=== PATIENT | female | born 1975 | race Caucasian/White ===

== ENCOUNTER → 2020-12-13 15:31 | Outpatient (BNVA) | payer OTHER, SELFPAY | PROVIDERS: PCP Internal Medicine; Visit Provider Surgery | DX: D17.9 Benign lipomatous neoplasm, unspecified (principal); K43.2 Incisional hernia without obstruction or gangrene | CPT/HCPCS: 99202 ==

== ENCOUNTER 2023-08-25 15:03 | Outpatient (AMB) | payer OTHER, SELFPAY ==
--- NOTE | 2023-08-25 15:06 | MHC.OFFVIS ---
Intake Vital Signs 08/25/23 15:10 Height 4 ft 9 in Weight 260 lb BMI 56.3 BP 131/53 L Blood Pressure Location Lt brachial Position Sitting Pulse 91 Intake Visit Reasons: Colonoscopy screening Intake Note: Patient new consult for pre colonoscopy screening Patient denies any GI issues. 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 Accompanied by: Self / Same As Patient Allergies codeine [Codeine] Allergy (Mild, Verified 08/25/23 15:09) VOMITING, nausea and vomiting Medication List - Last Reconciled 08/25/23 by Luisa Crowder PA-C acetaminophen ER 650 mg PO Q8H atorvastatin 40 mg PO QPM betamethasone dipropionate 0.05% 1 appl topical DAILY PRN bisacodyl (Dulcolax (bisacodyl)) 10 mg CO DAILY PRN bupropion HCl 300 mg PO BEDTIME lisinopril-hydrochlorothiazide 10-12.5 mg 1 tab PO DAILY loratadine 10 mg PO DAILY methadone 150 mg PO DAILY norethindrone (contraceptive) 0.35 mg PO DAILY omeprazole 40 mg PO DAILY triamcinolone acetonide 0.5% appl topical HPI HPI Comments History of Present Illness Details A 48 y/o female referred for index screening colonoscopy- She takes stool softeners- with good response-chronic constipation been taking methadone she has hx UGIB for ulcers- She takes omeprazole 40mg-seems to give fairly good coverage does have occasional breakthrough She has no nausea, vomiting hematemesis, hematochezia fever or chills No family history GI cancer [facility] Medical History (Updated 08/30/23 @ 14:47 by Luisa Crowder PA-C) Cataract Microscopic hematuria Morbid obesity Herniated disc Scoliosis Arthritis Nephrolithiasis Peptic ulcer Surgical History History of excision of mass History of ureter stent History of tonsillectomy History of delivery History of adjustable gastric banding (2006) Social History Household Members Other:: and kids Alcohol intake: never Patient Tobacco Use Status: Former Tobacco user Current occupational status: disabled Review of Systems Const All systems reviewed & are unremarkable except as noted in HPI and below Card Denies chest pain GI Denies hematochezia, Reports constipation, Denies nausea, Denies vomiting and Denies hematemesis Musc Reports back pain and Reports arthralgias Psych Reports anxiety, Reports depression, Denies homicidal ideation and Denies suicidal ideation Physical Exam Vital Signs: Last Vital Signs Pulse 91 08/25/23 15:10 BP 131/53 L 08/25/23 15:10 BMI result Body Mass Index 56.3 Const General: cooperative and comfortable Orientation/consciousness: patient oriented x3 Limitations: ambulation with cane HEENT Teeth and gingiva: other (no teeth) Resp Effort & Inspection: normal respiratory effort and able to speak in complete sentences Auscultation: clear to auscultation bilaterally, no rales, no rhonchi and no wheezes Neuro General: patient oriented x3 Assessment & Plan Assessment & Plan (1) Encounter for screening colonoscopy: Code(s): Z12.11 - Encounter for screening for malignant neoplasm of colon (2) History of bleeding ulcers: Code(s): Z87.11 - Personal history of peptic ulcer disease Plan: PPI (3) Acid reflux: Code(s): K21.9 - Gastro-esophageal reflux disease without esophagitis Plan: Reflux precaution Continue PPI (4) Chronic constipation: Comment: MLC methadone Code(s): K59.09 - Other constipation Plan: Maintain high-fiber diet Bowel regimen Plan EGD/ colon MG prep Miralax QD x 1 wk < prep day Orders: Orders EGD/Havre Combo - GI Use Only 08/25/23 K21.9 - Gastro-esophageal reflux disease without esophagitis, Z12.11 - Encounter for screening for malignant neoplasm of colon, Z87.11 - Personal history of peptic ulcer disease Medications: New bisacodyl (Dulcolax (bisacodyl)) Day before procedure @ 12 noon Take 4 tablets by mouth followed by large glass of water 20 mg (4 x 5 mg) PO ONCE 1 day PRN 4 tabs 0RF colonoscopy prep Z12.11 - Encounter for screening for malignant neoplasm of colon polyethylene glycol 3350 (Miralax) Take as directed by mouth the day before your procedure. 238 grams PO ONCE 1 day PRN 238 grams 0RF laxative effect Patient Instructions: 48-year-old female patient history GI bleed referred for screening colonoscopy Schedule EGD and colonoscopy MiraLax Gatorade MiraLax daily 1 week prior to procedure Maintain high-fiber Consistent bowel regimen Needs escorted due to anesthesia Rare risks discussed Coding Level of Care Code New Pt Level 3 (75333) Diagnoses Encounter for screening colonoscopy Z12.11 History of bleeding ulcers Z87.11 Acid reflux K21.9 Chronic constipation K59.09 Time Spent (min) 30
[2023-08-25 15:10] VITALS: BP 131/53; PULSE 91; BMI 56.3
== END 2023-08-25 15:28 | disposition home or self-care (01) ==
PROVIDERS: PCP Internal Medicine; Visit Provider Physician Assistant
DX: K21.9 Gastro-esophageal reflux disease without esophagitis (principal); K59.09 Other constipation; Z12.11 Encounter for screening for malignant neoplasm of colon; Z87.11 Personal history of peptic ulcer disease
CPT/HCPCS: 99203

== ENCOUNTER → 2023-08-25 15:03 | Outpatient (BNVA) | payer OTHER, SELFPAY | PROVIDERS: PCP Internal Medicine; Visit Provider Physician Assistant | DX: Z12.11 Encounter for screening for malignant neoplasm of colon (principal); K21.9 Gastro-esophageal reflux disease without esophagitis; K59.09 Other constipation; Z87.11 Personal history of peptic ulcer disease; Z79.899 Other long term (current) drug therapy | CPT/HCPCS: 99202 ==

== ENCOUNTER 2023-12-15 11:35 | Day surgery (SDC) | payer OTHER, SELFPAY ==
--- NOTE | 2023-12-14 13:01 | HO.ANESPROP2 ---
HPI - Anesthesia Eval Consult details Narrative: 48yo F for Upper Endoscopy and Colonoscopy BMI 56.3% Methadone 150mg daily PMFSH Active Problems Active Problems: All Active Problems Chronic constipation (Acute) History of bleeding ulcers (Acute) Acid reflux (Acute) Encounter for screening colonoscopy (Acute) Cataract (Acute) Lipoma (Acute) Incisional hernia (Acute) Past Medical History Medical History Cataract Microscopic hematuria Morbid obesity Herniated disc Scoliosis Arthritis Nephrolithiasis Peptic ulcer Surgical History Surgical History History of excision of mass History of ureter stent History of tonsillectomy History of delivery History of adjustable gastric banding (2006) Social History Social History Household Members Other:: and kids Alcohol intake: never Patient Tobacco Use Status: Former Tobacco user Current occupational status: disabled Meds Allergies Allergy/AdvReac Type Severity Reaction Status Date / Time codeine [Codeine] Allergy Mild VOMITING, Verified 12/15/23 13:29 nausea and vomiting Home Medications ?Medication ?Instructions ?Recorded ?Confirmed ?Last Taken ?Type acetaminophen 650 mg 650 mg PO Q8H 12/13/20 12/15/23 Unknown History tablet,extended release atorvastatin 40 mg tablet 40 mg PO QPM 12/13/20 12/15/23 Unknown History betamethasone dipropionate 0.05 % 1 appl topical DAILY PRN Rash 12/13/20 12/15/23 Unknown History topical cream bupropion HCl 300 mg 24 hr tablet, 300 mg PO BEDTIME 12/13/20 12/15/23 Unknown History extended release lisinopril 10 1 tab PO DAILY 12/13/20 12/15/23 Unknown History mg-hydrochlorothiazide 12.5 mg tablet loratadine 10 mg tablet 10 mg PO DAILY 12/13/20 12/15/23 Unknown History methadone 10 mg/mL oral concentrate 160 mg PO DAILY 12/13/20 12/15/23 12/15/23 History norethindrone (contraceptive) 0.35 0.35 mg PO DAILY 12/13/20 12/15/23 Unknown History mg tablet omeprazole 40 mg capsule,delayed 40 mg PO DAILY 12/13/20 12/15/23 Unknown History release triamcinolone acetonide 0.5 % appl topical 12/13/20 12/16/20 Unknown History topical cream Assessment and Plan Assessment Anesthesia Assessment: Chart Reviewed
[2023-12-15 13:33] LABS: UPreg QC Valid YES; Urine Pregnancy NEGATIVE (NEGATIVE)
[2023-12-15 13:35] VITALS: BP 98/52; PULSE 79; RESP 20; TEMP 36.1; O2SAT 96; BMI 47.2
[2023-12-15] MEDS: Lactated Ringers 1,000 ML 100 ML IVCONT (14:00)
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
--- NOTE | 2023-12-15 14:51 | P.HPSUR_ITS ---
Pre-Procedural Eval Section A - 24 Hr Update-Section A only Date of Service: 12/15/23 Section B - Complete if H&P > 30 days Chief Complaint: Encounter for screening for malignant neoplasm of Relevant Family History (Specify if Yes): No Relevant Social History: None Present Medications: see Short Stay Collaborative assessment Medical History: Significant History (Cataract Microscopic hematuria Morbid ob esity Herniated disc Scoliosis Arthritis Nephrolithiasis Peptic ulcer) History of Previous Operations: Relevant previous surgery/procedure and date(s) ( History of excision of mass History of ureter stent History of tonsillectomy History of delivery History of adjustable gastric banding (2006)) Allergies: Allergies Allergy/AdvReac Type Severity Reaction Status Date / Time codeine [Codeine] Allergy Mild VOMITING, Verified 12/15/23 13:29 nausea and vomiting Review of Systems Sugical H&P ROS: Negative: Constitution, Cardiovascular, Respiratory, Neurological, Psychiatric, Hem-Onc, Allergic/Immunologic, Gastrointestinal, Genitourinary, Musculoskeletal, Integumentary, Endocrine and Eyes/Ears/Nose/Throat Exam Surgical H&P Exam: Normal: HEENT, Normal: Heart, Normal: Lungs, Normal: E xtremities, Normal: Abdomen, Normal: Skin and Normal: Neurological Plan Diagnosis/Plan: Unchanged I have reviewed the history and physical and performed a pertinent physical examination on my patient. No changes have occurred unless specified. EGD for GERD Time Spent With Patient Time: Total time managing care of this patient today ____ minutes.
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
--- NOTE | 2023-12-15 15:34 | HO.OPN-COLON ---
Colonoscopy Operative Note Operative Note Date of Service: 12/15/23 Narrative: Operative Information Procedure Description: EGD, Colonoscopy Indication: colo screening, GERD Anesthesia: MAC FLEXIBLE TRANSORAL UPPER GASTROINTESTINAL ENDOSCOPY AND COLONOSCOPY PROCEDURE NOTE UPPER ENDOSCOPY Consent: Indications for the procedure and potential complications of bleeding, perforation, reaction to medications and missed diagnosis were discussed with the patient and informed consent was obtained. Instrument: Olympus GIF H 190 J mid size upper endoscope Monitoring: Vital signs and clinical assessment, continuous EKG monitoring, Pulse oximetry, Carbon Dioxide monitoring and blood pressure monitoring were done throughout the procedure. Procedure: The patient was placed in the left lateral decubitis position and pre-procedure medications were administered and a bite block was placed. The endoscope was inserted into the mouth and advanced under direct vision to the jejunum. A careful inspection was made as the upper endoscope was withdrawn including a retroflexed examination of the proximal stomach; Findings and interventions are described below. Findings: Larynx:normal Esophagus: GE junction at 35 cm, diaphragm hiatus at 35 cm, normal mucosa Stomach pouch: Normal mucosa. 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 Procedure: The patient was placed in the left lateral decubitis position and pre-procedure medications were administered. After a digital rectal examination of the ano-rectum, the video colonoscope was inserted into the rectum and advanced through the colon to the ascending colon The colon was full of sludge and fecal matter, visability was poor with exception of some parts of sigmoid The procedure was aborted Impression and Post Procedure Diagnosis: Endoscopy Findings: gastro gastric fistula Colonoscopy Findings: poor prep Plan: Repeat EGD with OTSC and grasper--have to order or mantis device, will also need APC Repeat Colonoscopy within 6 months with attention to prep or earlier if clinically indicated Above findings were reviewed with the patient and relevant handouts were provided if indicated.
[2023-12-15 15:37] VITALS: BP 92/42; PULSE 84; RESP 16; TEMP 36.4; O2SAT 93
--- NOTE | 2023-12-15 15:40 | HO.POSTANES ---
Post Anesthesia Evaluation Post Anesthesia Evaluation Date of Service: 12/15/23 Vital Signs: Vital Signs Temp Pulse Resp BP Pulse Ox O2 Del Method 12/15/23 15:37 97.6 F 84 16 92/42 L 93 Room Air 12/15/23 13:35 96.9 F 79 20 98/52 L 96 Room Air Anesthesia: Monitored Mental Status: Awake Pain Control: Satisfactory Nausea/Vomiting: None Hydration: Adequate Anesthesia-Related Issues: No Anes. Related Issues
[2023-12-15 15:52] VITALS: BP 112/59; PULSE 84; RESP 18; TEMP 36.6; O2SAT 98
== END 2023-12-15 16:15 | disposition home or self-care (01) ==
PROVIDERS: Nurse Practitioner; PCP Internal Medicine; Visit Provider Internal Medicine Gastroenterology
PROC: (CPT 43239; principal; 2023-12-15 15:00)
DX: Z12.11 Encounter for screening for malignant neoplasm of colon (principal); K59.09 Other constipation; K21.9 Gastro-esophageal reflux disease without esophagitis; K44.9 Diaphragmatic hernia without obstruction or gangrene; K31.6 Fistula of stomach and duodenum; Z87.11 Personal history of peptic ulcer disease; Z79.899 Other long term (current) drug therapy; F11.90 Opioid use, unspecified, uncomplicated; Z88.5 Allergy status to narcotic agent; Z98.890 Other specified postprocedural states
CPT/HCPCS: 43239; G0121; 81025; J2704

== ENCOUNTER → 2023-12-15 11:35 | Outpatient (BNV) | payer OTHER, SELFPAY | PROVIDERS: PCP Internal Medicine; Visit Provider Internal Medicine Gastroenterology | DX: Z12.11 Encounter for screening for malignant neoplasm of colon (principal); Z91.199 Patient's noncompliance with other medical treatment and regimen due to unspecified reason; K21.9 Gastro-esophageal reflux disease without esophagitis; K31.6 Fistula of stomach and duodenum | CPT/HCPCS: 43235; G0121 ==

== ENCOUNTER → 2024-02-01 20:30 | Outpatient (BNV) | payer OTHER, SELFPAY | PROVIDERS: PCP Internal Medicine; Visit Provider Internal Medicine | DX: R06.83 Snoring (principal) | CPT/HCPCS: 95810 ==

== ENCOUNTER → 2024-02-01 20:30 | Outpatient (REF) | payer OTHER, SELFPAY | LOC: HO.SL 20:30 | PROVIDERS: PCP Internal Medicine; Visit Provider Internal Medicine | DX: R06.83 Snoring (principal); F51.9 Sleep disorder not due to a substance or known physiological condition, unspecified; G47.11 Idiopathic hypersomnia with long sleep time; I10 Essential (primary) hypertension; E66.01 Morbid (severe) obesity due to excess calories; E78.00 Pure hypercholesterolemia, unspecified; Z79.899 Other long term (current) drug therapy | CPT/HCPCS: 95810 ==

== ENCOUNTER 2025-04-18 12:59 | Outpatient (REF) | payer OTHER, SELFPAY | END 2025-04-18 13:00 | disposition home or self-care (01) | LOC: HO.LNP 12:59 | PROVIDERS: PCP Internal Medicine; Visit Provider Advanced Practice Midwife | DX: Z01.419 Encounter for gynecological examination (general) (routine) without abnormal findings (principal); D22.9 Melanocytic nevi, unspecified; L40.3 Pustulosis palmaris et plantaris; E66.01 Morbid (severe) obesity due to excess calories; Z12.39 Encounter for other screening for malignant neoplasm of breast; Z30.41 Encounter for surveillance of contraceptive pills; Z68.43 Body mass index [BMI] 50.0-59.9, adult | CPT/HCPCS: 87626; 88175 ==

== ENCOUNTER 2025-04-18 12:59 | Outpatient (AMB) | payer OTHER, SELFPAY ==
--- NOTE | 2025-04-18 13:20 | MHC.OFFVIS ---
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 ?should be off OCP. Vp Cardiovascular Required: No Information Interpreted: non-clinical & clinical Battery Recharger: Battery Recharger Present (david) Accompanied by: Self / Same As Patient Allergies codeine (Codeine) Allergy (Mild, Verified 04/18/25 13:24) VOMITING, nausea and vomiting Medication List - Last Reconciled 04/18/25 by Rochelle Marshall LPN acetaminophen ER 650 mg PO Q8H atorvastatin 40 mg PO QPM betamethasone dipropionate 0.05% 1 appl topical DAILY PRN bupropion HCl XL 300 mg PO BEDTIME doxycycline hyclate 100 mg PO BID furosemide (Lasix) 20 mg PO DAILY lisinopril 20 mg PO DAILY loratadine 10 mg PO DAILY methadone 160 mg PO DAILY norethindrone (contraceptive) 0.35 mg PO DAILY omeprazole 40 mg PO DAILY triamcinolone acetonide 0.5% appl topical Do you need a note to return to daycare/school/sports/work: No HPI Comments Details: Pt presents today for ANNUAL exam , she is new to the office and hear to establish care, referred by her PCP She has the following concerns: she is currently on progestin only pill and wants to know should she be off the pill, reports originally prescribed for dysmenorrhea She is not sexually active for several years She denies any issues of DV Exercise: limited due to disability Nutrition/calcium: Last Pap: unknown- no results available Last mammo: completed externally, will sign N[facility] for [facility] Medical History Cataract Microscopic hematuria Morbid obesity Herniated disc Scoliosis Arthritis Nephrolithiasis Peptic ulcer Surgical History History of excision of mass History of ureter stent History of tonsillectomy History of delivery History of adjustable gastric banding (2006) Family History Mother No problems noted. Father No problems noted. Social History Household Members Other:: and kids Alcohol intake: never Patient Tobacco Use Status: Former Tobacco user Current occupational status: disabled Female Reproductive History Menstrual Age of Menarche: 8 control method: pills Total pregnancies: 3 Number of Living Children: 3 Review of Systems Const Reports no additional complaints ENT Reports no additional complaints Card Reports no additional complaints Resp Reports no additional complaints GI Reports no additional complaints Reports as per HPI Musc Details: walks with cane Skin/Breast Reports system reviewed and no additional complaints, except as documented Aller/Immun Details: hx auto-immune disorder Physical Exam Vital Signs: Last Vital Signs BP 118/72 04/18/25 13:21 BMI result Body Mass Index 54.8 Const General: cooperative and no acute distress Nutritional Appearance: obese morbidly obese Orientation/consciousness: patient oriented x3 Limitations: ambulation with cane HEENT Head: Yes normal to inspection and Yes normocephalic Ears: external ears normal General nose exam: Normal external nose present Neck Neck: Yes normal visual inspection Chest Breast/axilla inspection: normal inspection of the breasts, normal inspection of the axillae and Other (No skin changes, peau d orange, or nipple discharge noted) Breast/axilla palpation: normal palpation of the breasts, normal palpation of the axillae and no axillary lymphadenopathy Resp Effort & Inspection: normal respiratory effort and able to speak in complete sentences GI Inspection: Yes Abdominal wall edema (of the lower abdomen), No distended, Yes Abdominal panniculus present and Yes obesity Palpation (GI): Soft to palpation, nontender and no masses Percussion: Yes normal to percussion External Female Exam: normal external appearance, normal appearance of the urethra and erythema (pt without complaints) Speculum Exam - Vagina: normal appearance of the vagina and normal vaginal discharge Speculum Exam - Cervix: normal appearance of the cervix and normal palpation (neg CMT) Bimanual exam- vagina & uterus: normal bimanual exam (bimanual exam is limited d/t body habitous), normal palpation (neg CMT) and uterine mobility normal Bimanual Exam- Adnexa, other: no masses and No adnexal tenderness Skin Rashes: other (psoriasis plaques to upper extremeties) Neuro General: patient oriented x3 and moves all extremities Extrem General: Yes full ROM Psych Speech and movement: Normal speech and movement present Affect: normal affect Attitude: cooperative Thought process: Normal thought process present Assessment & Plan Assessment & Plan (1) Encounter for screening for malignant neoplasm of cervix: Code(s): Z12.4 - Encounter for screening for malignant neoplasm of cervix Plan: co-testing pap today (2) Encounter for screening breast examination: Code(s): Z12.39 - Encounter for other screening for malignant neoplasm of breast Plan: mammo up to date per pt report sign nikos for [facility] (3) Multiple atypical skin moles: Code(s): D22.9 - Melanocytic nevi, unspecified Plan: referral to derm (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 - Pustulosis palmaris et plantaris Plan: referal to derm (5) Numerous skin moles: Code(s): D22.9 - Melanocytic nevi, unspecified Plan: referral to derm (6) Obesity, morbid, BMI 50 or higher: Code(s): E66.01 - Morbid (severe) obesity due to excess calories (7) Well woman exam with routine gynecological exam: Code(s): Z01.419 - Encounter for gynecological examination (general) (routine) without abnormal findings (8) Surveillance of previously prescribed contraceptive pill: Code(s): Z30.41 - Encounter for surveillance of contraceptive pills Plan: there is no C.I for Progestin only pill, she will continue for another year and then stop if she chooses, she has no riley-menopausal sx at this time Plan During the visit, the following areas of concern were addressed: Monitoring of the menstrual cycle Contraception, including options and instructions, risks and benefits Regular exercise Healthy lifestyle Menopausal/riley-menopausal signs and symptoms, including nonprescription strategies for management Health Maintenance and Screening -Reviewed ASCCP guidelines for Paps and yearly (bi-yearly ) pelvic exam. -Reviewed and encouraged diet and exercise for cardiovascular and bone health -Reviewed breast self-awareness. Importance of yearly mammogram after age 40 (earlier if first-degree relative with breast cancer at a younger age ) Discuss use of 3 times per week weight-bearing exercise, vitamin D3 and servings of dietary calcium daily for bone health. -continue to follow with PCP for general medical care, immunizations. Screening strategies for colon cancer after age 50. pt states she was unable to complete the colonoscopy and will be completing the COLOGUARD Discussion of Kegel exercises for urinary incontinence Family and personal history of cancer reviewed. The patient has BMI: 54 The patient is overweight. Approaches towards weight loss are discussed including burning more calories than one takes in by frequent, small meals, portion control, avoiding eating before bedtime, regular exercise with an emphasis on duration rather than intensity, strength training exercise, referral to production reproduction manager or to weight loss management center upon patient request. RTO one year or sooner andrea Carrillo CNM Note about provider documentation : If you or the patient named in this chart and are reviewing your medical notes, please note that medical documentation is often written with abbreviations and medical terminology, and directed for other providers who may be involved in your care as well. Documentation is critical to record what has happened, what tests were ordered, and so they are interpreted with the resulting diagnoses. These nodes have been made available for patient review but not specifically written for the patient. Important health information is always given to my patients in clinical instructions. Please review your after visit summary and our contact our clinical staff if you have any questions. Orders: Orders Pap Smear 04/18/25 Z01.419 - Encounter for gynecological examination (general) (routine) without abnormal findings, Z12.4 - Encounter for screening for malignant neoplasm of cervix Referrals Dermatology Referral D22.9 - Melanocytic nevi, unspecified, L40.3 - Pustulosis palmaris et plantaris Coding Level of Care Code New Pt Prev Care 40-64y(28759) Diagnoses Encounter for screening for malignant neoplasm of cervix Z12.4 Encounter for screening breast examination Z12.39 Multiple atypical skin moles D22.9 Psoriasis palmaris L40.3 Numerous skin moles D22.9 Obesity, morbid, BMI 50 or higher E66.01 Well woman exam with routine gynecological exam Z01.419 Surveillance of previously prescribed contraceptive pill Z30.41
[2025-04-18 13:21] VITALS: BP 118/72; BMI 54.8
== END 2025-04-18 14:38 | disposition home or self-care (01) ==
LOC: HO.HWSM 12:59
PROVIDERS: PCP Internal Medicine; Visit Provider Advanced Practice Midwife
DX: Z01.419 Encounter for gynecological examination (general) (routine) without abnormal findings (principal); E66.01 Morbid (severe) obesity due to excess calories; Z12.39 Encounter for other screening for malignant neoplasm of breast; D22.9 Melanocytic nevi, unspecified; L40.3 Pustulosis palmaris et plantaris; Z30.41 Encounter for surveillance of contraceptive pills
CPT/HCPCS: 99386; 99459